=== PATIENT | male | born 1950 | race Caucasian/White ===

== ENCOUNTER → 2020-04-26 10:00 | Outpatient (BNVA) | payer MEDICARE, OTHER, SELFPAY | PROVIDERS: Family Provider Family Medicine; Referring Provider Dermatology; Visit Provider Dermatology | DX: D48.9 Neoplasm of uncertain behavior, unspecified (principal); L28.1 Prurigo nodularis | CPT/HCPCS: 11102; 88304; 88305; 99202; 99203 ==

== ENCOUNTER 2021-02-07 10:34 | Outpatient (CLI) | payer MEDICARE, OTHER, SELFPAY ==
--- NOTE | 2021-02-07 10:42 | USCV_ITS ---
Perico Stinson Age: 70 Gender: M : 1950 Exam Date: 02/07/2021 10:46 Ordering Phys: Anand Heath MD Technologist: Ava Shoemaker Exam Location: [facility] Indication: TIA/HTN/DM TYPE II Risk Factors: Previous Vascular Surgery: Right Brachial BP: / Left Brachial BP: / Right Left Velocity (cm/s) Spectral Plaque Velocity (cm/s) Spectral Plaque Syst/Diast Broadening Syst/Diast Broadening 59.80/ 12.40 Prox CCA 67.10 / 11.30 54.40/ 11.70 Mid CCA 50.40 / 10.70 48.55/ 10.10 Distal CCA 49.70 / 9.90 33.80/ 9.40 Prox ICA 42.00 / 14.50 36.30/ 11.50 Mid ICA 40.80 / 12.60 52.10/ 17.80 Distal ICA 49.80 / 17.80 80.00 ECA 65.70 0.96 ICA/CCA 0.99 Antegrade Vertebral Antegrade 30.30/ 8.00 cm/s 38.70/ 9.80 cm/s Tri Subclavian Tri 81.20 119.2 0 FINDINGS Comparison: none available. No significant elevation of systolic or diastolic velocities. Waveforms are normal. Minimal bilateral, plaque at the bifurcations with no elevation of velocity. Antegrade vertebral arteries. CONCLUSIONS Bilateral ICA stenosis less than 50%. Mild carotid atherosclerosis. Dr. Suzi Zambrano DO (Electronically Signed) Final Date: 07 February 2021 11:24 S
--- NOTE | 2021-02-07 13:45 | MR_ITS ---
WS: [id number] MRI BRAIN WITHOUT CONTRAST HISTORY: TIA;DIABETES;HYPERTENSION;HYPERLIPIDEMIA COMPARISON: CT head 02/14/2007 TECHNIQUE: Diffusion imaging, multiplanar T1, T2 and FLAIR imaging obtained. No evidence for acute infarct or hemorrhage. Singleton-white matter differentiation is normal. Very mild atrophy and chronic microvascular ischemic type changes in the periventricular white matter . Appropriate for the patient's age. No prior large territory infarct. No mass effect. No inferior di splacement of cerebellar tonsils. Ventricles and extra-axial spaces are normal. No inferior displacement of cerebellar tonsils. The sella turcica and pituitary gland are unremarkabl e. Posterior fossa is also unremarkable. Dural venous sinuses and [place] demonstrate no abnormality on this unenhanced studies. Paranasal sinuses: Clear. Mastoid air cells: Normal. Calvarium and scalp: Intact. MR/MR head wo con* [id number] IMPRESSION: 1. No acute infarct or hemorrhage. 2. Mild cerebral atrophy with chronic microvascular ischemic changes. No acute infarct.
== END 2021-02-07 10:35 | disposition home or self-care (01) ==
LOC: RAD 10:38
PROVIDERS: PCP Family Medicine; Visit Provider Family Medicine
DX: G45.9 Transient cerebral ischemic attack, unspecified (principal); E11.9 Type 2 diabetes mellitus without complications; I10 Essential (primary) hypertension; E78.5 Hyperlipidemia, unspecified; I67.82 Cerebral ischemia; G31.9 Degenerative disease of nervous system, unspecified
CPT/HCPCS: 70551; 93880

== ENCOUNTER 2021-03-24 07:43 | Emergency (ER) | payer MEDICARE, OTHER, SELFPAY ==
[2021-03-24] VITALS (9 sets, daily range): BP systolic 98–184; BP diastolic 65–91; PULSE 57–71; RESP 18; TEMP 36.6–38.6; O2SAT 95–97; BMI 34.8
[2021-03-24] MEDS: acetaminophen 500 mg Tablet 1000 MG PO (08:24)
[2021-03-24] MEDS: ondansetron 4 MG Tablet PO (08:24)
--- NOTE | 2021-03-24 08:36 | PC.NURSE ---
Patient reports that he has had congestion and cough for the last 2 weeks. Reports headache being present for last month and diarrhea for 2 days. Noted to have fever during triage. Reports that many members of his [employer] have tested positive for covid.
--- NOTE | 2021-03-24 08:43 | W.ED.COVID ---
HPI - COVID General: Chief Complaint: Fever Stated Complaint: H/A N/D Time Seen by Provider: 03/24/21 08:04 Triage information: Has fever, cough or shortness of breath. No known COVID + exposure last 14 days History of Present Illness: HPI Narrative: Patient has possible exposure to Covid. He has a lot of the Covid symptoms. Patient attends [employer] were 65% of members are positive for Covid many was in a car with 5 gentleman that were 3M had Covid. Patient is started with fever last 3 days feeling congested. Patient is unvaccinated patient has a history of hypertension diabetes MD complaint: reported COVID exposure and has COVID symptoms Prior covid testing: no COVID 19 common symptoms: positive fever(s), cough, non-productive cough, body aches, headache(s), nasal congestion, nausea, vomiting and diarrhea COVID 19 other sytmptoms: negative chest pain Onset (ago): day(s) Severity: mild Pertinent comorbid conditions: diabetes and hypertension Treatment prior to arrival: none COVID Results: SARS-CoV-2 Antigen (Rapid) Positive (Negative) H 03/24/21 08:28 03/24/21 Review of Systems Const: Reports: fever(s) and body aches Eyes: Denies: change in vision or blurry vision ENMT: Reports: nasal congestion Card: Denies: chest pain or dyspnea on exertion Resp: Reports: non-productive cough GI: Reports: nausea, vomiting and diarrhea : Denies: difficulty urinating Musc: Denies: extremity pain Skin/Breast: Denies: rash Neuro: Reports: headache(s) Psych: Denies: anxiety or depression Manav/Lymph: Denies: easy bruising PFSH ED PFSH: Family History Father Diabetes Social History Smoking and tobacco status: never smoked Alcohol intake: never History of recent travel: No Physical Exam Const: COMMON NORMALS: no acute distress, average body habitus and patient oriented x3 HENMT: COMMON NORMALS: normocephalic HEAD & SCALP: normal to inspection and normocephalic FACE & SINUS: normal facial exam Eye: COMMON NORMALS: conjunctivae normal GENERAL EYE: appearance normal, both eyes and all related structures CONJUNCTIVA: Yes conjunctivae normal Neck/C-Spine: COMMON NORMALS: no JVD Chest: COMMONS NORMALS: normal inspection of the chest Resp: COMMON NORMALS: normal respiratory effort Cardio: COMMON NORMALS: no JVD, regular rate and regular rhythm RATE: regular rate RHYTHM: regular rhythm GI: INSPECTION: Yes normal to inspection Extremity: COMMON NORMALS: normal to inspection and full ROM Neuro: COMMON NORMALS: patient oriented x3 Course Vital Signs: Vital signs: Vital Signs Temperature 101.5 F H 03/24/21 08:06 Pulse Rate 63 03/24/21 09:30 Respiratory Rate 18 03/24/21 09:30 Blood Pressure 98/65 03/24/21 09:30 Pulse Oximetry 97 03/24/21 09:30 MDM - COVID Lab Data: Labs: Lab Results 03/24/21 Range/Units 08:28 SARS-CoV-2 Ag (Rap id) Positive H (Negative) COVID Results: SARS-CoV-2 Antigen (Rapid) Positive (Negative) H 03/24/21 08:28 03/24/21 Monoclonal Antibody Treatments Inclusion/Exclusion Criteria weight >/= 40 kg and + direct Sars-Cov-2 test less than 7-10 days ago age >/= 65, has diabetes and age >/= 55 and has hypertension not requiring hospitalization, not requiring oxygen (if not chronically on oxygen) and no increase oxygen requirement (if chronically on oxygen) Patient education patient/family/caregiver received/reviewed fact sheet, Emergency Use Authorization/unapproved drug status discussed with patient/family/caregiver, alternatives to this treatment discussed with patient/family/caregiver, risks and benefits of medication reviewed with patient/family/caregiver, patient/family/caregiver given opportunity for questions, which were answered and patient consents to receiving Monoclonal Antibody Treatment Plan for treatment Meets criteria for Monoclonal Antibody infusion Ordering Monoclonal Antibody infusion for today Discharge Plan Discharge Prescriptions: No Action valsartan-hydrochlorothiazide 320-25 mg tablet 1 tab PO DAILY RF: 0 metoprolol succinate 100 mg capsule,sprinkle,ER 24hr 100 mg PO DAILY RF: 0 hydralazine 25 mg tablet 25 mg PO TID RF: 0 metformin 500 mg tablet 500 mg PO BID RF: 0 glimepiride 4 mg tablet 4 mg PO BID RF: 0 simvastatin 40 mg tablet 40 mg PO DAILY RF: 0 clobetasol 0.05 % ointment 1 applic TOPICAL BID 14 Days Qty: 45 RF: 2 Aspir-81 81 mg Tablet,Delayed Release (Dr/Ec) 81 mg PO DAILY RF: 0 Vitamin D3 125 mcg (5,000 unit) Tablet 125 mcg PO DAILY RF: 0 Coding Level of Care Code ED Shoemaker Apprentice for Chg Fwd Exam Comprehensive
[2021-03-24 09:49] LABS: SARS Covid-2 Antigen Positive (Negative)
== END 2021-03-24 12:24 | disposition home or self-care (01) ==
PROVIDERS: Emergency Provider Nurse Practitioner Family; PCP Family Medicine
DX: R50.9 Fever, unspecified (principal); R51.9 Headache, unspecified; R19.7 Diarrhea, unspecified; R11.2 Nausea with vomiting, unspecified; R09.81 Nasal congestion; E11.9 Type 2 diabetes mellitus without complications; I10 Essential (primary) hypertension; Z79.84 Long term (current) use of oral hypoglycemic drugs; Z20.822 Contact with and (suspected) exposure to COVID-19
CPT/HCPCS: 87426; 96365; 99284; Q0162

== ENCOUNTER 2021-04-25 13:26 | Emergency (ER) | payer MEDICARE, OTHER, SELFPAY ==
[2021-04-25 13:51] VITALS: BP 172/102; PULSE 92; RESP 18; TEMP 37; O2SAT 96; BMI 34.8
--- NOTE | 2021-04-25 17:51 | W.ED.ABDPA2 ---
HPI - Abdominal Pain General: Chief Complaint: Abdominal Pain Stated Complaint: STOMACH ISSUES AFTER INFUSION 1 MO AGO Time Seen by Provider: 04/25/21 16:52 Source: patient Mode of arrival: ambulatory Limitations: no limitations History of Present Illness: HPI narrative: 70-year-old male states has been having right-sided back pain over the last 4 to 5 days. He states he had a Covid last month and states that start having the sharp pain in the right side of his back is worse with palpation and movement. He denies any difficulty urinating. He states he is concerned he may have a kidney stone so he took medicine that Dr. Shahid told him to take but he was not sure what it was. He denies any vomiting or diarrhea. Denies any cough. Associated Symptoms: Denies chills, diarrhea, dysuria, fever(s), nausea and vomiting Review of Systems Const: Denies: fever(s), chills, body aches or change in appetite Eyes: Denies: blurry vision or eye discomfort ENMT: Denies: throat pain or dental pain Card: Denies: chest pain Resp: Denies: dyspnea GI: Denies: abdominal pain, nausea, vomiting or diarrhea : Denies: dysuria Musc: Reports: back pain; Denies: neck pain Skin/Breast: Denies: rash Neuro: Denies: headache(s) Psych: Denies: depression Manav/Lymph: Denies: easy bruising All/Imm: Denies: urticaria PFSH ED PFSH: Family History Father Diabetes Social History Smoking and tobacco status: never smoked Alcohol intake: never History of recent travel: No Physical Exam Const: COMMON NORMALS: no acute distress, patient oriented x3 and healthy appearing HENMT: COMMON NORMALS: normocephalic and atraumatic HEAD & SCALP: normocephalic and atraumatic Eye: COMMON NORMALS: Equal, round and reactive pupils present and EOMs intact bilaterally PUPIL: Yes Equal, round and reactive pupils present Neck/C-Spine: COMMON NORMALS: full ROM and supple Chest: COMMONS NORMALS: normal inspection of the chest and normal palpation of entire chest wall Resp: COMMON NORMALS: normal respiratory effort, No retractions, No use of accessory muscles and clear to auscultation bilaterally AUSCULTATION: clear to auscultation bilaterally Cardio: COMMON NORMALS: regular rate, regular rhythm and No murmurs present (Cardio) RATE: regular rate RHYTHM: regular rhythm GI: COMMON NORMALS: Normal to inspection, nondistended, normoactive bowel sounds present, Soft to palpation, non-tender and no masses PALPATION: Yes Soft to palpation Back/Pelvis: OTHER: pointtender over right thoracic region Extremity: COMMON NORMALS: normal to inspection and full ROM Neuro: COMMON NORMALS: patient oriented x3, moves all extremities and no focal motor deficits Psych: COMMON NORMALS: mental status grossly normal, Normal thought process present and cooperative THOUGHT PROCESS: Normal thought process present Skin: COMMON NORMALS: no rashes or lesions noted and no wounds GENERAL SKIN EXAM: no rashes or lesions noted Course Vital Signs: Vital signs: Vital Signs Temperature 98.6 F 04/25/21 13:51 Pulse Rate 92 04/25/21 13:51 Respiratory Rate 18 04/25/21 13:51 Blood Pressure 172/102 04/25/21 13:51 Pulse Oximetry 96 04/25/21 13:51 MDM - Abdominal Pain MDM Narrative: Medical decision making narrative: Patient presents here with back pain. Believes likely muscular as he is point tender over the right side of his thoracic spine. Is also worsening with movement improved with rest. His abdominal exam here is benign. Urinalysis and blood work and chest x-ray are all normal. He is stable for discharge will place him on Naprosyn and Robaxin he is to return if worsening. He understands and agrees to plan. Lab Data: Labs: Lab Results 04/25/21 04/25/21 04/25/21 Range/Units 17:54 17:54 17:54 WBC 5.7 (4.0-10.0) 10^3/ uL RBC 4.12 (4.1-5.3) 10^6/u L Hgb 12.5 (11.7-16.6) g/dL Hct 37.7 L (42.0-52.0) % MCV 91.5 (80-94) fl MCH 30.3 (28.0-34.0) pg MCHC 33.2 (30.0-36.0) g/dL RDW 12.7 (12.1-15.1) % Plt Count 153 (130-400) 10^3/c mm MPV 9.5 (7.4-10.4) fL Neut % (Auto) 60.5 % Lymph % (Auto) 23.3 % [place] % (Auto) 10.2 % Eos % (Auto) 4.4 % Baso % (Auto) 0.7 % Neut # (Auto) 3.43 (1.8-7.7) 10^3/u L Lymph # (Auto) 1.3 (0.8-4.8) 10^3/u L [place] # (Auto) 0.6 (0.2-0.9) 10^3/u L Eos # (Auto) 0.3 (0.0-0.8) 10^3/u L Baso # (Auto) 0.0 (0.0-0.1) 10^3/u L Nucleated RBC % (a uto) 0 % Nucleated RBCs # 0.0 /100WBC Sodium 140 (136-145) mmol/L Potassium 5.0 (3.5-5.1) mmol/L Chloride 107 (98-107) mmol/L Carbon Dioxide 25 (22-29) mmol/L Anion Gap 13.0 (5-19) BUN 26 H (8-23) mg/dL Creatinine 1.3 H (0.7-1.2) mg/dL GFR Calculation Not Reportable Glucose 150 H (65-115) mg/dL Calculated Osmolal ity 298 H (285-295) mOsm/k g Calcium 9.0 (8.5-10.5) mg/dL Total Bilirubin 0.3 (0.15-1.2) mg/dL AST 13 (0-40) U/L ALT 18 (0-41) U/L Alkaline Phosphata se 64 (40-130) IU/L Total Protein 7.1 (6.6-8.7) g/dL Albumin 4.2 (3.5-5.2) g/dL Globulin 2.9 (1.3-4.6) g/dL Lipase 56 (13-60) U/L Urine Color Yellow (Yellow) Urine Appearance Clear (CLEAR) Urine pH 5 (5-7) Ur Specific Gravit y 1.020 (1.005-1.030) Urine Protein 3+ H (Negative) Urine Glucose (UA) 2+ H (Normal) Urine Ketones Negative (Negative) Urine Blood Neg (Negative) Urine Nitrate Negative (Negative) Urine Bilirubin Neg (Negative) Urine Urobilinogen Norm (Negative) mg/dL Ur Leukocyte Connie ase Negative (Negative) Urine RBC 0-4 H (0-2) /hpf Urine WBC Not Reportable Ur Squamous Epith Cells Not Reportable Ur Transition Epit h Cell 0-4 /hpf Amorphous Sediment Not Reportable Urine Bacteria Trace (NONE) /hpf Imaging Data ^: CXR: Attestation: I personally reviewed and interpreted this imaging study as follows: My impression: no acute abnormality Discharge Plan Discharge Patient Disposition: Home Clinical Impression: Abdominal pain Back pain Qualifiers: Back pain location: thoracic back pain Chronicity: acute Back pain laterality: right Qualified Code(s): M54.6 - Pain in thoracic spine Condition: Stable Prescriptions: New methocarbamol 750 mg tablet 750 mg PO Q6H PRN (Reason: spasms) Qty: 20 RF: 0 Naprosyn 500 mg tablet 500 mg PO BID PRN (Reason: pain) Qty: 20 RF: 0 No Action valsartan-hydrochlorothiazide 320-25 mg tablet 1 tab PO DAILY RF: 0 metoprolol succinate 100 mg capsule,sprinkle,ER 24hr 100 mg PO DAILY RF: 0 hydralazine 25 mg tablet 25 mg PO TID RF: 0 metformin 500 mg tablet 500 mg PO BID RF: 0 glimepiride 4 mg tablet 4 mg PO BID RF: 0 simvastatin 40 mg tablet 40 mg PO DAILY RF: 0 clobetasol 0.05 % ointment 1 applic TOPICAL BID 14 Days Qty: 45 RF: 2 aspirin [Aspir-81] 81 mg Tablet,Delayed Release (Dr/Ec) 81 mg PO DAILY RF: 0 cholecalciferol (vitamin D3) [Vitamin D3] 125 mcg (5,000 unit) Tablet 125 mcg PO DAILY RF: 0 Discharge Orders: Discharge ED (Routine); Ordered 04/25/21 Ordered By: Jazmín Ambrocio Referrals: Anand Heath MD [Primary Care Provider] - 1-3 days Discharge Diet: Advance as tolerated Discharge Activity: Resume usual activity Patient Instructions: Abdominal Pain (ED), Back Pain (ED) Coding Level of Care Code ED Repairer Screen Crusher for Chg Fwd Exam Comprehensive
[2021-04-25 18:02] LABS: Basophils % 0.7 %; Eosinophils # 0.3 10^3/uL (0.0-0.8); Eosinophils % 4.4 %; Hematocrit 37.7 % (42.0-52.0); Hemoglobin 12.5 g/dL (11.7-16.6); Lymphocytes # 1.3 10^3/uL (0.8-4.8); Lymphocytes % 23.3 %; Mean Corpuscular HGB Conc 33.2 g/dL (30.0-36.0); Mean Corpuscular Hemoglobin 30.3 pg (28.0-34.0); Mean Corpuscular Volume 91.5 fl (80-94); Mean Platelet Volume 9.5 fL (7.4-10.4); Monocytes # 0.6 10^3/uL (0.2-0.9); Monocytes % 10.2 %; Neutrophils # 3.43 10^3/uL (1.8-7.7); Neutrophils % 60.5 %; Nucleated Red Blood Cells % 0 %; Platelet Count 153 10^3/cmm (130-400); Red Blood Count 4.12 10^6/uL (4.1-5.3); Red Cell Distribution Width 12.7 % (12.1-15.1); White Blood Count 5.7 10^3/uL (4.0-10.0)
[2021-04-25] MEDS: sodium chloride 0.9% 1,000 ML 999 ML IV (18:37)
[2021-04-25] MEDS: ketorolac 30 mg/mL INJ 15 MG IVP (18:39)
[2021-04-25 18:40] LABS: Alanine Aminotransferase 18 U/L (0-41); Albumin Level 4.2 g/dL (3.5-5.2); Alkaline Phosphatase 64 IU/L (40-130); Aspartate Amino Transferase 13 U/L (0-40); Blood Urea Nitrogen 26 mg/dL (8-23); Carbon Dioxide 25 mmol/L (22-29); Chloride 107 mmol/L (98-107); Globulin 2.9 g/dL (1.3-4.6); Glucose 150 mg/dL (65-115); Lipase 56 U/L (13-60); Osmolality Calculated 298 mOsm/kg (285-295); Sodium 140 mmol/L (136-145); Total Bilirubin 0.3 mg/dL (0.15-1.2); Total Protein 7.1 g/dL (6.6-8.7)
--- NOTE | 2021-04-25 19:52 | XRR_ITS ---
PROCEDURE INFORMATION: Exam: XR Chest Exam date and time: 04/25/2021 7:52 PM Age: 70 years old Clinical indication: Cough TECHNIQUE: Imaging protocol: XR of the chest. Views: 1 view. COMPARISON: CR Chest 1 [place] [id number] 08/14/2018 2:27 AM FINDINGS: Lungs: Unremarkable. No consolidation. Pleural spaces: Unremarkable. No pleural effusion. No pneumothorax. Heart/Mediastinum: Unremarkable. No cardiomegaly. Bones/joints: Unremarkable. XR/XR chest 1V portable [id number] IMPRESSION: No acute findings.
[2021-04-25 19:54] LABS: Glucose Urine UA 2+ (Normal); Protein Urine 3+ (Negative); Urine Appearance Clear (CLEAR); Urine Color Yellow (Yellow); pH Urine 5 (5-7)
[2021-04-25 19:55] LABS: Add Urine Culture? No; Add Urine Microscopic? YES; Bacteria Urine TRACE /hpf; Bilirubin Urine Neg (Negative); Blood Urine Neg (Negative); Ketones Urine Negative (Negative); Leukocyte Esterase Urine Negative (Negative); Nitrate Urine Negative (Negative); RBC Urine 0-4 /hpf (0-2); Transitional Epi Cells Urine 0-4 /hpf; Urobilinogen Urine Norm (Negative)
[2021-04-25 20:41] VITALS: BP 166/90; PULSE 63; RESP 18; O2SAT 98
== END 2021-04-25 20:43 | disposition home or self-care (01) ==
PROVIDERS: Emergency Medicine; Emergency Provider Emergency Medicine; PCP Family Medicine
DX: R10.9 Unspecified abdominal pain (principal); M54.6 Pain in thoracic spine; Z79.82 Long term (current) use of aspirin; Z79.84 Long term (current) use of oral hypoglycemic drugs
CPT/HCPCS: 71045; 80053; 81001; 83690; 85025; 96361; 96374; 99283; J1885; J7030

== ENCOUNTER 2021-04-29 08:17 | Emergency (ER) | payer MEDICARE, OTHER, SELFPAY ==
[2021-04-29 08:29] VITALS: BP 190/87; PULSE 65; RESP 18; TEMP 36.9; O2SAT 99; BMI 34.8
[2021-04-29 08:47] VITALS: BP 190/87; PULSE 62; RESP 18; O2SAT 98
[2021-04-29 08:52] VITALS: BP 190/87; PULSE 78; RESP 18; O2SAT 98
--- NOTE | 2021-04-29 09:13 | W.ED.BACK ---
HPI - Back Pain/Injury General: Chief Complaint: Abdominal Pain Stated Complaint: flank pain Time Seen by Provider: 04/29/21 08:22 History of Present Illness: HPI Narrative: Patient presents with history of back pain x2 weeks. He is 1 month post Covid and monoclonal antibody fusion. Patient does not remember any injury. Said he is woke up with his back hurting and is hurt for the last couple weeks was seen here in the ER recently treated with naproxen and methocarbamol which is helped some. Patient said he is not for sure what he is would like a second opinion. MD elicited complaint: back pain Pertinent past history: prior back pain, arthritis and other (Covid less than a month ago) Onset (ago): week(s) Timing: intermittent Severity: mild Similar Symptoms Previously: No Quality: aching Location: thoracic spine Exacerbating factors: movement Relieving factors: immobilization Context: unknown Associated symptoms: Reports no associated symptoms; Deny abdominal pain, chills, fever(s), nausea or vomiting Treatments prior to arrival: NSAIDS and other medications Review of Systems Const: Denies: fever(s), chills or body aches Eyes: Denies: change in vision or blurry vision ENMT: Denies: throat pain or nasal congestion Card: Denies: chest pain or dyspnea on exertion Resp: Denies: dyspnea, productive cough or non-productive cough GI: Denies: abdominal pain, nausea or vomiting : Denies: difficulty urinating Musc: Reports: back pain (Pain right side of the back x2 weeks muscle is sore. No known injury histo); Denies: extremity pain Skin/Breast: Denies: rash Neuro: Denies: headache(s) Psych: Denies: anxiety or depression Manav/Lymph: Denies: easy bruising PFSH ED PFSH: Family History Father Diabetes Social History Smoking and tobacco status: never smoked Alcohol intake: never History of recent travel: No Physical Exam Const: COMMON NORMALS: no acute distress, average body habitus and patient oriented x3 HENMT: COMMON NORMALS: normocephalic HEAD & SCALP: normal to inspection and normocephalic FACE & SINUS: normal facial exam Eye: COMMON NORMALS: conjunctivae normal GENERAL EYE: appearance normal, both eyes and all related structures CONJUNCTIVA: Yes conjunctivae normal Neck/C-Spine: COMMON NORMALS: no JVD Chest: COMMONS NORMALS: normal inspection of the chest Resp: COMMON NORMALS: normal respiratory effort and clear to auscultation bilaterally AUSCULTATION: clear to auscultation bilaterally Cardio: COMMON NORMALS: no JVD, regular rate and regular rhythm RATE: regular rate RHYTHM: regular rhythm GI: COMMON NORMALS: Normal to inspection, nondistended, normoactive bowel sounds present Back/Pelvis: THORACIC SPINE/UPPER BACK: Yes normal to inspection, Yes thoracic ROM normal, Yes pain with ROM, No thoracic spinal tenderness and Yes paraspinal muscle tenderness Thoracic paraspinal muscle tenderness: right LUMBAR SPINE/LOWER BACK: Yes straight leg raise negative bilaterally and No bend over test abnormal Extremity: COMMON NORMALS: normal to inspection and full ROM Neuro: COMMON NORMALS: patient oriented x3 Skin: COMMON NORMALS: no rashes or lesions noted GENERAL SKIN EXAM: no rashes or lesions noted Course Vital Signs: Vital signs: Vital Signs Temperature 98.4 F 04/29/21 08:29 Pulse Rate 78 04/29/21 08:52 Respiratory Rate 18 04/29/21 08:52 Blood Pressure 190/87 04/29/21 08:52 Pulse Oximetry 98 04/29/21 08:52 MDM - Back Pain/Injury MDM Narrative: Medical decision making narrative: Patient declined any further studies. Most likely has his arthritis in his back flared up from his recent Covid/monoclonal antibody treatment. Patient will continue present medications we will try prednisone and wear that his blood sugar might go up with that. Patient will follow-up primary care provider. Discharge Plan Discharge Patient Disposition: Home Clinical Impression: Back pain Qualifiers: Back pain location: thoracic back pain Chronicity: acute Back pain laterality: right Qualified Code(s): M54.6 - Pain in thoracic spine Condition: Stable Prescriptions: New prednisone 20 mg tablet 20 mg PO DAILY Qty: 7 RF: 0 No Action valsartan-hydrochlorothiazide 320-25 mg tablet 1 tab PO DAILY RF: 0 metoprolol succinate 100 mg capsule,sprinkle,ER 24hr 100 mg PO DAILY RF: 0 hydralazine 25 mg tablet 25 mg PO TID RF: 0 metformin 500 mg tablet 500 mg PO BID RF: 0 glimepiride 4 mg tablet 4 mg PO BID RF: 0 simvastatin 40 mg tablet 40 mg PO DAILY RF: 0 clobetasol 0.05 % ointment 1 applic TOPICAL BID 14 Days Qty: 45 RF: 2 aspirin [Aspir-81] 81 mg Tablet,Delayed Release (Dr/Ec) 81 mg PO DAILY RF: 0 cholecalciferol (vitamin D3) [Vitamin D3] 125 mcg (5,000 unit) Tablet 125 mcg PO DAILY RF: 0 methocarbamol 750 mg tablet 750 mg PO Q6H PRN (Reason: spasms) Qty: 20 RF: 0 Naprosyn 500 mg tablet 500 mg PO BID PRN (Reason: pain) Qty: 20 RF: 0 Discharge Orders: Discharge ED (Routine); Ordered 04/29/21 Ordered By: Flex Michael Referrals: Anand Heath MD [Primary Care Provider] - Discharge Diet: Usual diet Discharge Activity: Increase activity as tolerated Patient Instructions: Thoracic Pain (ED) Activity Restrictions/Additional Instructions: Follow-up with medical provider as directed. Take medications as prescribed. Return to the ER or your medical provider if condition worsens. Please read and understand discharge instructions. If any questions ask please. Be aware that prednisone might increase your blood sugar during the time that you are taking it. Apply moist heat to area 4 times a day for approximately 20 minutes at a time to help with discomfort. Possible visit chiropractor might be of benefit. Coding Level of Care Code ED Senior Escrow Officer for Wendy Dahl
== END 2021-04-29 08:52 | disposition home or self-care (01) ==
LOC: ER 09:02
PROVIDERS: Emergency Provider Nurse Practitioner Family; PCP Family Medicine
DX: M54.6 Pain in thoracic spine (principal); Z86.16 Personal history of COVID-19
CPT/HCPCS: 99281

== ENCOUNTER → 2022-04-03 08:35 | Outpatient (BNVA) | payer MEDICARE, OTHER, SELFPAY | PROVIDERS: PCP Family Medicine; Visit Provider Family Medicine | DX: E11.9 Type 2 diabetes mellitus without complications (principal); E78.5 Hyperlipidemia, unspecified | CPT/HCPCS: 80053; 80061; 83036 ==

== ENCOUNTER → 2022-10-13 08:27 | Outpatient (BNVA) | payer MEDICARE, OTHER, SELFPAY | PROVIDERS: PCP Family Medicine; Visit Provider Family Medicine | DX: E11.9 Type 2 diabetes mellitus without complications (principal); E78.5 Hyperlipidemia, unspecified; I10 Essential (primary) hypertension | CPT/HCPCS: 80053; 80061; 83036 ==

== ENCOUNTER → 2023-02-05 15:53 | Outpatient (BNVA) | payer MEDICARE, OTHER, SELFPAY | PROVIDERS: PCP Family Medicine; Visit Provider Family Medicine | DX: E11.9 Type 2 diabetes mellitus without complications (principal); E78.5 Hyperlipidemia, unspecified; I10 Essential (primary) hypertension | CPT/HCPCS: 80053; 80061; 83036; 83880; 85025 ==

== ENCOUNTER → 2023-07-03 08:42 | Outpatient (BNVA) | payer MEDICARE, OTHER, SELFPAY | PROVIDERS: PCP Family Medicine; Visit Provider Family Medicine | DX: E78.5 Hyperlipidemia, unspecified (principal); I10 Essential (primary) hypertension; E11.9 Type 2 diabetes mellitus without complications | CPT/HCPCS: 80053; 80061; 83036 ==

== ENCOUNTER → 2023-12-31 07:57 | Outpatient (BNVA) | payer MEDICARE, SELFPAY | PROVIDERS: PCP Family Medicine; Visit Provider Family Medicine | DX: R73.03 Prediabetes (principal); I10 Essential (primary) hypertension; E11.9 Type 2 diabetes mellitus without complications; E78.5 Hyperlipidemia, unspecified; U07.1 COVID-19; N18.9 Chronic kidney disease, unspecified | CPT/HCPCS: 80053; 80061; 83036; 83880; 85025 ==

== ENCOUNTER → 2024-06-27 08:10 | Outpatient (BNVA) | payer MEDICARE, OTHER, SELFPAY | PROVIDERS: PCP Family Medicine; Visit Provider Family Medicine | DX: I10 Essential (primary) hypertension (principal); E11.9 Type 2 diabetes mellitus without complications; E78.5 Hyperlipidemia, unspecified | CPT/HCPCS: 80053; 80061; 83036; 85025 ==

== ENCOUNTER → 2025-01-02 08:36 | Outpatient (BNVA) | payer MEDICARE, OTHER, SELFPAY | PROVIDERS: PCP Family Medicine; Visit Provider Family Medicine | DX: N18.9 Chronic kidney disease, unspecified (principal); R73.03 Prediabetes; I10 Essential (primary) hypertension | CPT/HCPCS: 80053; 80061; 83036; 85025 ==

== ENCOUNTER → 2025-07-03 07:41 | Outpatient (BNVA) | payer MEDICARE, OTHER, SELFPAY | PROVIDERS: PCP Family Medicine; Visit Provider Family Medicine | DX: E11.9 Type 2 diabetes mellitus without complications (principal); E78.5 Hyperlipidemia, unspecified; I10 Essential (primary) hypertension | CPT/HCPCS: 80053; 80061; 83036; 85025 ==